=== PATIENT | female | born 1935 | race Caucasian/White ===

== ENCOUNTER 2020-03-31 08:00 | Inpatient (IN) | payer MEDICARE ==
[~2020-03-31] VITALS: Ht 162.6 cm; Wt 56.0 kg
[2020-03-31] MEDS ORDERED: PLEASE ENTER ALLERGIES MC SCH (08:30)
[2020-03-31] MEDS ORDERED: SODIUM CHLORIDE 0.9%, 500ML IVBOLUS ONE ×2 (08:30→14:00)
[2020-03-31] MEDS ORDERED: PLEASE ENTER HEIGHT AND WEIGHT AND ALLERGIES MC SCH (08:30)
[2020-03-31 08:40] LABS: MEAN CORPUSCULAR HEMOGLOBIN 29.3 pg (27.0-34.8); MEAN CORPUSCULAR HGB CONC 32.8 g/dL (32.4-35.8); MEAN CORPUSCULAR VOLUME 89.4 fL (80-100); MEAN PLATELET VOLUME 9.3 fL (7.4-10.4); PLATELET COUNT 328 x10^3/uL (130-400); RED BLOOD COUNT 4.59 x10^6/uL (3.82-5.3)
--- NOTE | 2020-03-31 08:46 | NUR ---
PT IN HOSPITAL GOWN. PT ON CARDIAC AND VITALS MONITORS. PT UNRESPONSIVE AT THIS TIME, DOES MOAN AT TIMES INCOMPREHENSIBLY. WHILE REMOVING UNDERWEAR FOR SILVA INSERTION, NOTICED BLOOD ON INCONTINENCE PAD. ERP MADE AWARE, RECTAL EXAM DONE. PT TEMP IS CONTINUING TO ELEVATE, IS CURRENTLY 101.7 PER SILVA TEMP PROBE. CXR DONE, LABS HAVE BEEN DRAWN. ORDERED FLUIDS AND HEPARIN INFUSING AT THIS TIME. WILL CONTINUE TO MONITOR.
[2020-03-31 08:47] LABS: INTERNATIONAL NORMALIZED RATIO 1.05 (0.93-1.1); PROTHROMBIN TIME 11.1 Seconds (9.6-11.5)
[2020-03-31 08:48] LABS: ALANINE AMINOTRANSFERASE 19 U/L (12-78); ALBUMIN 2.5 g/dL (3.4-5.0); ANION GAP 16 mmol/L (5-15); CALCIUM 8.3 mg/dL (8.5-10.1); CHLORIDE 110 mmol/L (98-107)
--- NOTE | 2020-03-31 08:49 | NUR ---
PT RICHARDSON SALGADO - [phone]
[2020-03-31 08:51] LABS: ALKALINE PHOSPHATASE 105 U/L (45-117); BILIRUBIN,TOTAL 0.5 mg/dL (0.2-1.0)
[2020-03-31] MEDS ORDERED: HEPARIN 5,000 UNITS/ML, 1ML IV ONE (09:00)
[2020-03-31] MEDS ORDERED: HEPARIN 5,000 UNITS/ML, 1ML IV PRN (09:00)
[2020-03-31] MEDS ORDERED: VANCOMYCIN PER PHARMACY MC PRN (09:00)
[2020-03-31] MEDS ORDERED: VANCOMYCIN 1,400 MG in SODIUM CHLORIDE 0.9% 250 ML IV ONE (09:00)
[2020-03-31] MEDS ORDERED: CEFTRIAXONE PMX 1GM/50ML 50 ML IV ONE (09:00)
[2020-03-31] MEDS ORDERED: HEPARIN 25,000 UNITS/250ML PMX 250 ML IV PRN (09:00)
[2020-03-31] MEDS ORDERED: CEFTRIAXONE PMX 1GM/50ML 50 ML ONE (09:02)
[2020-03-31 09:03] LABS: MICROSCOPIC INDICATED
[2020-03-31 09:05] LABS: BASOPHILS # (AUTO) 0.01 x10^3/uL (0-0.1); BASOPHILS % (AUTO) 0 % (0-1); EOSINOPHILS % (AUTO) 0 % (1-7); LYMPHOCYTES # (AUTO) 0.84 x10^3/uL (1-3.4); LYMPHOCYTES % (AUTO) 4 % (22-44); MD SCAN; MONOCYTES # (AUTO) 0.52 x10^3/uL (0.2-0.8); MONOCYTES % (AUTO) 3 % (2-9); NEUTROPHILS # (AUTO) 18.06 x10^3/uL (1.8-6.8); NEUTROPHILS % (AUTO) 93 % (42-75)
[2020-03-31] MEDS ORDERED: CALCIUM GLUCONATE 4.6 MEQ in SODIUM CHLORIDE 0.9% 100 ML IV ONE (09:30)
[2020-03-31] MEDS ORDERED: CALCIUM GLUCONATE 0.46MEQ/1ML IVPush ONE (09:30)
[2020-03-31] MEDS ORDERED: SODIUM CHLORIDE 0.9% 1,000ML IVBOLUS ONE (09:30)
--- NOTE | 2020-03-31 09:56 | NUR ---
pt resting calmly in bed at this time. pt swabbed for covid-19, swab sent to lab. ordered fluids infusing
[2020-03-31] MEDS ORDERED: hydrALAzine 20 MG/ML, 1ML IVPush PRN (10:30)
[2020-03-31] MEDS ORDERED: PIPERACILLIN/TAZO/PMX 2.25GM 50 ML IV SCH (10:30)
[2020-03-31] MEDS ORDERED: SODIUM CHLORIDE 0.9% 1,000 ML IV SCH ×2 (10:30→14:06)
[2020-03-31] MEDS ORDERED: ACETAMINOPHEN 325 MG TABLET PO PRN (10:30)
[2020-03-31] MEDS ORDERED: MORPHINE SULFATE 4 MG/ML, 1ML ONE ×3 (10:54→15:19)
[2020-03-31] MEDS: morphine SULFATE 10 MG/ML, 1ML IVPush PRN ×2 (10:58→12:13)
[2020-03-31] MEDS ORDERED: INSULIN LISPRO 100 UNITS/ML, PEN SQ-INSULIN SCH (11:00)
--- NOTE | 2020-03-31 11:03 | NUR ---
pt family at bedside per ed supervisor riveting approval. pt appears in discomfort as her resp are rapid, pt is grunting and moaning. pt medicated with ordered pain meds. ordered labs have been drawn. pt vitals are stable, with temp elevation to 102.6. ERP aware pt temp was increasing. will continue to monitor. pt urine remains pink tinged. antiXa ordered.
[2020-03-31] MEDS ORDERED: GLIP5TAB10 PO (11:09)
[2020-03-31] MEDS ORDERED: NITR50CA11 PO (11:09)
[2020-03-31] MEDS ORDERED: LISI-170 PO (11:09)
[2020-03-31] MEDS ORDERED: FESO4TAB PO (11:09)
[2020-03-31] MEDS ORDERED: LEVO112T4 PO (11:09)
[2020-03-31] MEDS ORDERED: LUTE6CAP3 PO (11:13)
--- NOTE | 2020-03-31 11:52 | NUR ---
attempted NG placedment x3 with tech assist. unable to get NG tube into stomach. will ask another RN to try.
--- NOTE | 2020-03-31 12:18 | NUR ---
hospitalist aware that pt does not have an NG tube placed at this time. Stated may hold for now. pt grunting and moaning still, after previous pain meds given. pt given another dose of pain meds. hospitalist in to see pt. coming in at this time.
--- NOTE | 2020-03-31 12:42 | NUR ---
pt son david [phone]
--- NOTE | 2020-03-31 13:21 | NUR ---
PT RESTING IN BED, MOANING HAS QUIETED. PT SEEMS MORE AT REST AFTER C APPLICATION DEVELOPER. FAMILY AT BEDSIDE. PT VSS. WILL CONTINUE TO MONITOR.
--- NOTE | 2020-03-31 14:09 | NUR ---
REPORT TO DIYA LONDONO FOR ROOM [id number]
[2020-03-31 14:29] VITALS: BP 108/77
[2020-03-31] MEDS: MORPHINE SULFATE 4 MG/ML, 1ML IVPush PRN ×2 (15:24→17:15)
[2020-03-31] MEDS: LORazepam 2 MG/ML, 1ML IVPush PRN ×2 (15:58→18:31)
[2020-03-31] MEDS ORDERED: MORPHINE 30MG/30ML PCA.SYR IV PRN (16:30)
[2020-03-31] MEDS: MORPHINE 30MG/30ML PCA.SYR IV PRN ×4 (17:32→18:40)
[2020-03-31] MEDS ORDERED: ATORVASTATIN 20 MG TABLET NG SCH (21:00)
[2020-04-01] MEDS: MORPHINE 30MG/30ML PCA.SYR IV PRN ×4 (01:27→22:54)
[2020-04-01] MEDS ORDERED: ASPIRIN 300 MG SUPP PR SCH (09:00)
[2020-04-01] MEDS: LORazepam 2 MG/ML, 1ML IVPush PRN (23:02)
[2020-04-02] MEDS: MORPHINE 30MG/30ML PCA.SYR IV PRN ×2 (05:02→13:38)
== END 2020-04-03 | disposition expired | DRG 871 ==
LOC: ED 08:22 → EDIP 10:42 → 4NE 14:20
PROVIDERS: ADMIT Internal Medicine Infectious Disease; ATTEND Internal Medicine
PROC: 0T9B30Z Drainage of Bladder with Drainage Device, Percutaneous Approach (ICD-10-PCS; principal; 2020-03-31)
DX: A41.9 Sepsis, unspecified organism (principal); G93.41 Metabolic encephalopathy; I21.4 Non-ST elevation (NSTEMI) myocardial infarction; J96.01 Acute respiratory failure with hypoxia; R65.21 Severe sepsis with septic shock; J18.9 Pneumonia, unspecified organism; E87.2 Acidosis; N17.9 Acute kidney failure, unspecified; E11.9 Type 2 diabetes mellitus without complications; E78.00 Pure hypercholesterolemia, unspecified; E78.5 Hyperlipidemia, unspecified; E87.5 Hyperkalemia; F02.80 Dementia in other diseases classified elsewhere, unspecified severity, without behavioral disturbance, psychotic disturbance, mood disturbance, and anxiety; G30.9 Alzheimer's disease, unspecified; I10 Essential (primary) hypertension; Z51.5 Encounter for palliative care; Z66 Do not resuscitate; Z20.828 Contact with and (suspected) exposure to other viral communicable diseases; E89.0 Postprocedural hypothyroidism; Z88.8 Allergy status to other drugs, medicaments and biological substances; Z88.2 Allergy status to sulfonamides; Z79.899 Other long term (current) drug therapy; Z79.1 Long term (current) use of non-steroidal anti-inflammatories (NSAID)
CPT/HCPCS: 36415; 71045; 80053; 81001; 83605; 83735; 84100; 84145; 84484; 85025; 85520; 85610; 85730; 87040; 87077; 87086; 87186; 93005; 99291; G0378; J0610; J0696; J2270; J3370; J2060; J7030; J7040; J7050; U0001-CS